=== PATIENT | female | born 1955 | race Caucasian/White ===

== ENCOUNTER 2022-08-02 06:38 | Day surgery (SDC) | payer OTHER ==
[~2022-08-02] VITALS: Ht 154.9 cm; Wt 85.3 kg
[2022-08-02] MEDS ORDERED: CLINDAMYCIN PHOS 600 MG/ D5W 50 ML PREMIX IV ONE (07:00)
[2022-08-02] MEDS ORDERED: LR 1,000 ML IV.SOLN IV ONE (09:04)
[2022-08-02] MEDS ORDERED: fentaNYL CITRATE/PF 100 MCG/2 ML AMP ONE (09:04)
[2022-08-02] MEDS ORDERED: LIDOCAINE/EPI MPF 1%1:200000 30 ML VIAL ONE (09:04)
[2022-08-02] MEDS ORDERED: DEXAMETHASONE SOD PHOSPHATE 4 MG/ML VIAL ONE (09:04)
[2022-08-02] MEDS ORDERED: NS IRRIG SOLN 1000 ML IR ONE (09:04)
[2022-08-02] MEDS ORDERED: SEVOFLURANE 15 MIN GAS INH ONE (09:04)
[2022-08-02] MEDS ORDERED: NS 1000 ML IV.SOLN IV ONE (09:04)
[2022-08-02] MEDS ORDERED: BUPIVACAINE /PF 0.5% 30 ML VIAL ONE (09:04)
[2022-08-02] MEDS ORDERED: METOCLOPRAMIDE HCL 10 MG/2 ML VIAL ONE (09:04)
[2022-08-02] MEDS ORDERED: ePHEDrine sulfate 50 MG/ML VIAL ONE (09:04)
[2022-08-02] MEDS ORDERED: SUCCINYLCHOLINE CHLORIDE 20 MG/ML(QUELICIN) ONE (09:04)
[2022-08-02] MEDS ORDERED: PROPOFOL 200MG/ 20ML VIAL (DIPRIVAN) IV ONE (09:04)
[2022-08-02] MEDS ORDERED: ONDANSETRON HCL 4 MG/2 ML VIAL IVP PRN ×2 (12:30→14:30)
[2022-08-02] MEDS ORDERED: MEPERIDINE HCL/PF 25 MG/ML DISP.SYRIN IVP PRN (12:30)
[2022-08-02] MEDS ORDERED: MORPHINE 4 MG INJ. 4 MG/ML VIAL IVP PRN (12:30)
[2022-08-02] MEDS ORDERED: ACETAMINOPHEN I.V. 1000 MG 100 ML IV ONE (13:00)
[2022-08-02] MEDS ORDERED: ONDANSETRON 4 MG ODT TAB PO PRN (14:30)
[2022-08-02] MEDS ORDERED: GLUCOSE (DEXTROSE) ORAL GEL -Adults PO PRN (14:30)
[2022-08-02] MEDS ORDERED: HYDROcodone/ACETAMIN 5-325 MG TAB (NORCO/ VICODIN) PO PRN (14:30)
[2022-08-02] MEDS ORDERED: D5W 1,000 ML IV PRN (14:30)
[2022-08-02] MEDS ORDERED: INSULIN REGULAR, HUMAN 100 UNITS/ML, 3 ML VIAL (humuLIN R) SUBCUT PRN (14:30)
[2022-08-02] MEDS ORDERED: DEXTROSE 50% JECT 50 ML DISP.SYRIN IVP PRN (14:30)
--- NOTE | 2022-08-02 15:00 | NUR ---
REPORT RECEIVED REPORT FROM [facility]. PATIENT IN BED, RESPIRATIONS EVEN, NON LABORED, BED IN LOW AND LOCKED POSITION CALL LIGHT WITHIN REACH, BED ALARM ON. LOGAN DRAIN IN PLACE, 10 [address] AT SULRGERY SITE. CLEAN AND DRY. PATIENT ABLE TO MAKE NEEDS KNOWN. TRACHEOSTOMY TRAY BEDSIDE
[2022-08-02 15:30] VITALS: BP_SYST 99
[2022-08-02] MEDS ORDERED: FURO-149 PO (16:08)
[2022-08-02] MEDS ORDERED: MELA5TAB12 PO (16:08)
[2022-08-02] MEDS ORDERED: FENO160 PO (16:08)
[2022-08-02] MEDS ORDERED: FEXO180T94 PO (16:08)
[2022-08-02] MEDS ORDERED: APIX5TAB PO (16:08)
[2022-08-02] MEDS ORDERED: METO25TA3 PO (16:08)
[2022-08-02] MEDS ORDERED: ALBU90AE INH (16:09)
[2022-08-02] MEDS ORDERED: FLUT16SP16 NS (16:19)
[2022-08-02] MEDS ORDERED: FLUT1BLS5 IH (16:19)
--- NOTE | 2022-08-02 16:29 | NUR ---
INFORMED DR HAWKINS THAT MED REC NEEDS TO BE DONE BY HIM. HE STATES HE WILL DO MED REC.
[2022-08-02] MEDS ORDERED: ALBUTEROL SULFATE 0.083% 2.5 MG/3 ML VIAL.NEB INH PRN (16:45)
[2022-08-02] MEDS: KCL 20 mEq in 0.45% NS 1000 mL 1,000 ML IV SCH (16:55)
--- NOTE | 2022-08-02 17:24 | NUR ---
iv fluid rate Paged Dr Landis regarding rate of IVF's. Patient has CHF Spoke with Molly at the exchange
--- NOTE | 2022-08-02 17:45 | NUR ---
spoke with dr gilbert as long as patient is taking oral foods and drinks. OK to dc ivf
--- NOTE | 2022-08-02 19:27 | NUR ---
closing note Provided SBAR to night RN. Patient is in bed, respirations even, non labored, bed in low and locked position, call light within reach, bed alarm on SCD's in place. IV is saline Locked LOGAN drain emptied, Endorsed care to night RN
[2022-08-02 20:59] VITALS: BP_SYST 94
--- NOTE | 2022-08-02 21:32 | NUR ---
blood sugar checked = 152 mg/dl
--- NOTE | 2022-08-02 21:33 | NUR ---
c/o right neck pain rated 4/10. Vicodin given as ordered.
--- NOTE | 2022-08-02 23:49 | NUR ---
Resting quietly with eyes closed, no c/o pain or discomfort. Instructed to notify staff if in need of assist to ambulate to bathroom, verbalized understanding. Call light within reach.
[2022-08-03 00:37] VITALS: BP_SYST 92
[2022-08-03] MEDS: KCL 20 mEq in 0.45% NS 1000 mL 1,000 ML IV SCH ×2 (07:10→08:48)
[2022-08-03 08:28] VITALS: BP_SYST 128
[2022-08-03] MEDS ORDERED: LORATADINE 10 MG TABLET PO SCH (09:00)
[2022-08-03] MEDS ORDERED: (Fluticasone/Umeclidin/Vilanter (Trelegy Ellipta 100-62.5-25) INH SCH (09:00)
[2022-08-03] MEDS ORDERED: FENOFIBRATE 160 MG TABLET PO SCH (09:00)
[2022-08-03] MEDS ORDERED: FUROSEMIDE 40 MG TABLET PO SCH (09:00)
[2022-08-03] MEDS ORDERED: METOPROLOL SUCCINATE 25 MG TAB.SR.24H (TOPROL XL) PO SCH (09:00)
[2022-08-03 10:23] VITALS: BP_SYST 128
[2022-08-03 12:10] VITALS: BP_SYST 106
[2022-08-03 15:04] VITALS: BP_SYST 106
--- NOTE | 2022-08-03 15:30 | NUR ---
D/C Patient Patient given medication reconciliation form and D/C instructions. Exit Care provided. Patient verbalized understanding. MD discussed with patient the results and treatment provided. Ambulatory with steady gait for discharge to home. Patient in stable condition, ID band removed. IV catheter removed, intact and dressing applied, no active bleeding.No new Rx given. Patient educated on pain management, and care of LOGAN drain, and on signs and symptoms of infection. All belongings sent with patient.
[2022-08-03 16:55] VITALS: BP_SYST 122
[2022-08-03] MEDS ORDERED: MELATONIN 5 MG TABLET PO SCH (21:00)
== END 2022-08-03 15:30 | disposition home or self-care (01) ==
LOC: SDS 06:38 → SMU 06:39 → SDS 08-03 15:30
PROVIDERS: ATTEND Otolaryngology
DX: D11.0 Benign neoplasm of parotid gland (principal); I50.9 Heart failure, unspecified; J44.9 Chronic obstructive pulmonary disease, unspecified; E66.01 Morbid (severe) obesity due to excess calories; E78.00 Pure hypercholesterolemia, unspecified; Z68.36 Body mass index [BMI] 36.0-36.9, adult; Z20.822 Contact with and (suspected) exposure to COVID-19; Z79.899 Other long term (current) drug therapy
CPT/HCPCS: 87081; 36415 ×2; 42410; 88307; 87426; 94640; 94760; U0003; J3490 ×2; J1100; J1815; J2765; J2704; J0330; J3010; J7120; J7030; J7613; J0131; J3480